=== PATIENT | male | born 1945 | race Caucasian/White ===

== ENCOUNTER → 2016-04-12 | Day surgery (SDC) | payer MEDICARE, OTHER | LOC: MSO 07:13 | DX: Z12.11 Encounter for screening for malignant neoplasm of colon (principal); K57.30 Diverticulosis of large intestine without perforation or abscess without bleeding; F17.200 Nicotine dependence, unspecified, uncomplicated; I10 Essential (primary) hypertension | CPT/HCPCS: 00810; J3010; J7120 ==

== ENCOUNTER → 2016-04-18 | Outpatient (CLI) | payer MEDICARE, OTHER | LOC: LAB 09:49 | DX: Z00.00 Encounter for general adult medical examination without abnormal findings (principal); I10 Essential (primary) hypertension; Z12.5 Encounter for screening for malignant neoplasm of prostate ==

== ENCOUNTER → 2018-04-05 | Outpatient (CLI) | payer MEDICARE, OTHER ==
[2018-04-05 12:28] LABS: ALBUMIN 4.3 g/dL (3.5-5.0); CALCIUM 9.5 mg/dL (8.4-10.2); POTASSIUM 4.6 mmol/L (3.6-5.0); TOTAL BILIRUBIN 0.8 mg/dL (0.2-1.3); TOTAL PROTEIN 7.5 g/dL (6.3-8.2)
== END ==
LOC: LAB 11:40
PROVIDERS: Family Medicine
DX: Z12.5 Encounter for screening for malignant neoplasm of prostate (principal); I10 Essential (primary) hypertension

== ENCOUNTER → 2021-03-10 | Outpatient (CLI) | payer MEDICARE, OTHER ==
[2021-03-10 08:20] LABS: BASO # 0.04 K/mm3 (0.02-0.10); EOS # 0.31 K/mm3 (0.04-0.40); EOS % 6.2 % (0.0-4.0); HEMATOCRIT 48.1 % (42.0-52.0); HEMOGLOBIN 15.6 g/dL (13.5-18.0); LYMPH# 2.23 K/mm3 (1.50-4.00); MEAN CELL VOLUME 87 fl (78-100); MEAN CORPUSCULAR HEMOGLOBIN 28 pg (27-31); MEAN CORPUSCULAR HGB CONC 32 g/dL (33-37); MEAN PLATELET VOLUME 9.5 fl (7.4-10.4); MONO # 0.47 K/mm3 (0.20-0.80); NEU # 1.97 K/mm3 (1.40-6.50); PLATELET COUNT 200 K/mm3 (130-400); RED BLOOD COUNT 5.53 M/mm3 (4.20-5.60); RED CELL DISTRIBUTION WIDTH 13.6 % (11.5-14.5)
[2021-03-10 08:25] LABS: POTASSIUM 4.6 mmol/L (3.5-5.1)
[2021-03-10 08:26] LABS: CALCIUM 9.6 mg/dL (8.3-10.5)
[2021-03-10 08:27] LABS: TOTAL PROTEIN 7.3 g/dL (6.2-8.1)
[2021-03-10 08:29] LABS: TOTAL BILIRUBIN 0.6 mg/dL (0.2-1.2)
== END ==
LOC: LAB 07:47
PROVIDERS: Family Medicine
DX: Z00.00 Encounter for general adult medical examination without abnormal findings (principal); Z12.9 Encounter for screening for malignant neoplasm, site unspecified; Z12.5 Encounter for screening for malignant neoplasm of prostate; Z13.6 Encounter for screening for cardiovascular disorders

== ENCOUNTER → 2022-12-15 | Outpatient (CLI) | payer MEDICARE, OTHER ==
[2022-12-16 11:50] LABS: ANA SCREEN with REFLEX Negative (Negative)
[2022-12-19 21:07] LABS: ANTI-CYC CITRULLINATED PEPT AB 2 units (0-19)
== END ==
LOC: RAD 07:47 → LAB 07:47
PROVIDERS: Family Medicine
DX: Z13.6 Encounter for screening for cardiovascular disorders (principal)